=== PATIENT | female | born 1950 | race Caucasian/White ===

== ENCOUNTER 2023-07-06 18:36 | Emergency (ER) | payer OTHER ==
[2023-07-06 19:23] VITALS: TEMP 97.3; BMI 27.4
[2023-07-06] MEDS ORDERED: FAMOTIDINE 20 MG/50 ML IVPB 20 MG/50 ML MG IVPB ONE ×2 (20:11→20:15)
[2023-07-06] MEDS ORDERED: ACETAMINOPHEN 1000 MG/100 ML BAG IVPB ONE (20:12)
[2023-07-06 20:14] LABS: MCH 31.5 pg (25.7-33.7); MCHC 34.3 g/dl (32.0-36.0); PLATELET COUNT 333.4 10^3/uL (134-434); RBC 4.13 10^6/uL (3.60-5.2); RDW 14.4 % (11.6-15.6); WHITE BLOOD COUNT 12.3 10^3/uL (4.0-10.8)
[2023-07-06] MEDS ORDERED: ACETAMINOPHEN INJECTION 100 ML IVPB ONE (20:15)
[2023-07-06 20:23] LABS: INR 1.17 (0.83-1.09); PROTHROMBIN TIME (PATIENT) 13.6 SEC (9.7-13.0)
[2023-07-06 20:31] LABS: ALBUMIN 4.4 g/dl (3.4-5.0); BILIRUBIN,TOTAL 0.5 mg/dl (0.2-1); CALCIUM 9.2 mg/dl (8.5-10.1); CREATININE 0.5 mg/dl (0.6-1.3); TOT PROT 6.3 g/dl (6.4-8.2)
[2023-07-06 20:35] LABS: POTASSIUM 4.3 mmol/L (3.5-5.1)
[2023-07-06 20:36] LABS: PLATELET ESTIMATE ADEQUATE
[2023-07-06] MEDS ORDERED: PANTOPRAZOLE SODIUM 40 MG VIAL IVPUSH ONE (20:58)
[2023-07-06] MEDS ORDERED: PANTOPRAZOLE SODIUM 40 MG VIAL ONE (21:02)
[2023-07-06] MEDS ORDERED: morphine CARPU-JECT 2 MG/1 ML DISP.SYRIN IVPUSH ONE (21:53)
[2023-07-06] MEDS ORDERED: ASPIRIN 325 MG TABLET PO ONE (22:27)
[2023-07-06] MEDS ORDERED: ATORVASTATIN CA 80 MG TABLET (FP) PO ONE (22:27)
[2023-07-06] MEDS ORDERED: HEPARIN NA (PORCINE) 5,000 UNITS/ML 1ML VIAL IVPUSH PRN ×2 (22:27)
[2023-07-06] MEDS ORDERED: HEPARIN INFUSION - 25,000 UNITS/500 ML INFUS.BAG IVPB ONE (22:29)
[2023-07-06] MEDS ORDERED: ATORVASTATIN CA 80 MG TABLET (FP) ONE (22:29)
[2023-07-06] MEDS ORDERED: ASPIRIN 325 MG TABLET ONE (22:29)
[2023-07-06] MEDS ORDERED: HEPARIN INFUSION - 25,000 UNITS/500 ML INFUS.BAG IVPB SCH (22:30)
[2023-07-06] MEDS ORDERED: CLOPIDOGREL BISULFATE 300 MG TABLET PO ONE (22:33)
[2023-07-06] MEDS ORDERED: CLOPIDOGREL BISULFATE 300 MG TABLET ONE (22:41)
[2023-07-07 02:31] VITALS: BP 111/71; PULSE 73; RESP 19
== END 2023-07-07 04:28 | disposition short-term general hospital (02) ==
LOC: FER 18:36
PROC: 3E033GC Introduction of Other Therapeutic Substance into Peripheral Vein, Percutaneous Approach (ICD-10-PCS; principal; 2023-07-06)
PROC: 3E033NZ Introduction of Analgesics, Hypnotics, Sedatives into Peripheral Vein, Percutaneous Approach (ICD-10-PCS; 2023-07-06)
PROC: 3E033GC Introduction of Other Therapeutic Substance into Peripheral Vein, Percutaneous Approach (ICD-10-PCS; 2023-07-06)
PROC: 3E033GC Introduction of Other Therapeutic Substance into Peripheral Vein, Percutaneous Approach (ICD-10-PCS; 2023-07-06)
PROC: 3E033GC Introduction of Other Therapeutic Substance into Peripheral Vein, Percutaneous Approach (ICD-10-PCS; 2023-07-06)
DX: R10.13 Epigastric pain (principal); I21.4 Non-ST elevation (NSTEMI) myocardial infarction; Z20.822 Contact with and (suspected) exposure to COVID-19
CPT/HCPCS: 0241U-QW; 36415; 71045-TC-FY; 80053; 84484; 85027; 85610; 93005; 99285-25; J1644